=== PATIENT | female | born 1985 | race Caucasian/White ===

== ENCOUNTER 2019-08-23 12:02 | Day surgery (SDC) | payer OTHER, SELFPAY ==
[2019-08-22 13:12] VITALS: BMI 24.0
[~2019-08-23 12:02] MED LIST: Bupivacaine HCl 0.5%/Epinephrine 1:200,000/PF 30 ml Vial ONE; Dexamethasone 20 MG/5 ML VIAL ONE; Ketorolac Tromethamine 30 MG/ML VIAL ONE; Lidocaine 1% PF 5 ML VIAL ONE; Metoclopramide HCl 10 MG/2 ML VIAL ONE; Ondansetron PF 4 MG/2 ML Vial ONE; PROPOFOL 200 MG/20 ML VIAL ONE
[2019-08-23] MEDS ORDERED: Famotidine/PF 20 mg/2ml Vial ONE (12:44)
[2019-08-23] MEDS ORDERED: Fentanyl 100 MCG/2 ML VIAL ONE (13:21)
[2019-08-23] MEDS ORDERED: Midazolam HCl 2 mg/2 ml Vial ONE (13:21)
[2019-08-23] MEDS ORDERED: Dexamethasone 4 mg/ml Vial ONE (13:21)
[2019-08-23] MEDS ORDERED: Meperidine HCl/PF 25 MG/ML VIAL ONE (14:13)
--- NOTE | 2019-08-23 20:13 | RAD ---
TWO VIEWS LEFT WRIST 08/23/19 PROVIDED CLINICAL HISTORY: Postop. FINDINGS: No comparisons. Spot fluoroscopic frontal and lateral views of the left wrist demonstrate volar plate and screw fixat ion of distal radial fracture with near anatomic alignment. IMPRESSION: As above. POS: ERICA
--- NOTE | 2019-08-23 23:57 | OP ---
DATE OF PROCEDURE: 08/23/2019 PREOPERATIVE DIAGNOSIS: Left distal radius fracture, extra-articular, two fragments. POSTOPERATIVE DIAGNOSIS: Left distal radius fracture, extra-articular, two fragments. PROCEDURE PERFORMED: Open reduction and internal fixation of left distal radius. ANESTHESIA: General. SQL ANALYST: Gael Panda PA-C TOURNIQUET TIME: Approximately 40 minutes at 250 mmHg. IMPLANTS: Synthes 2.4 mm variable angle LCP two-column plate. COMPLICATIONS: None. DRAINS: None. SPECIMEN: None. OUTCOME: Near-anatomic alignment. INDICATIONS FOR PROCEDURE: The patient is a 33-year-old lady, status post fall, sustained distal radius fracture with dorsal comminution. The patient still has residual dorsal angulation of 35 degrees and after discussion with the patient including risks and benefits, we decided to proceed with open reduction and internal fixation to improve alignment and hopefully facilitate return of function in an expeditious fashion. Informed consent has been obtained. I believe all questions answered. DESCRIPTION OF PROCEDURE: The patient was brought to the operating room after a single site block and then general anesthesia induced. She was placed supine with the left arm on an armboard. A sterile prep and drape were then performed of the left upper extremity. The limb was then exsanguinated with Esmarch bandage, tourniquet inflated to 250 mmHg. Next, a volar radial skin incision was made. After, skin was incised. Dissection was carried between the flexor carpi radialis and brachioradialis, taking care to reflect the neurovascular bundle radially. Next, the pronator quadratus was released off the radial border of the distal radius and swept towards the midline revealing the underlying fracture and proximal distal radial shaft. The fracture was reduced under direct visualization and held in place while a 2.4 mm variable angle LCP 2-column plate was applied to the volar cortex of the distal radius and held in place with an initial cortical screw proximal to the fracture. AP and lateral C-arm images were made and some slight adjustments of plate alignment was performed and then a total of 4 locking screws were placed in the horizontal limb of the plate. This was followed by two additional screws in the vertical portion of the plate proximal to the fracture. Final AP and lateral C-arm images were obtained that showed sikhism of radial length, volar tilt, and radial inclination. The wound was then irrigated with bulb syringe and closed in layers with 2-0 Vicryl deep followed by nylon for the skin. Xeroform gauze, Webril, and fiberglass splint was applied to the wrist. Tourniquet was let down and the patient was transferred to recovery room in stable condition. There were no complications. The patient tolerated the procedure well. Job ID: [id number]
== END 2019-08-23 17:30 | disposition home or self-care (01) ==
LOC: SDC 12:02
PROVIDERS: ATTEND Orthopaedic Surgery
PROC: 0PSJ04Z Reposition Left Radius with Internal Fixation Device, Open Approach (ICD-10-PCS; principal; 2019-08-23)
DX: S52.552A Other extraarticular fracture of lower end of left radius, initial encounter for closed fracture (principal); W18.30XA Fall on same level, unspecified, initial encounter; X50.1XXA Overexertion from prolonged static or awkward postures, initial encounter
CPT/HCPCS: 76000; C1713; J0670; J0690; J1100; J1885; J2001; J2175; J2250; J2405; J2704; J2765; J3010; S0028